=== PATIENT | female | born 1945 | race Caucasian/White ===

== ENCOUNTER 2018-03-10 09:01 | Outpatient (CLI) | payer MEDICARE | END 2018-03-10 09:02 | disposition home or self-care (01) | LOC: CTENTCT 09:01 | PROVIDERS: ATTEND Specialist | DX: J32.8 Other chronic sinusitis (principal) | CPT/HCPCS: 70486 ==

== ENCOUNTER 2018-10-16 07:33 | Day surgery (SDC) | payer MEDICARE ==
[2018-10-13 15:43] VITALS: BMI 34.4
[2018-10-16] MEDS ORDERED: Midazolam HCl 2 mg/2 ml Vial ONE (09:02)
[2018-10-16] MEDS ORDERED: Fentanyl 100 MCG/2 ML VIAL ONE (09:02)
[2018-10-16] MEDS ORDERED: Sodium Bicarbonate 2.5 MEQ/5 ML VIAL ONE (09:02)
[2018-10-16 10:14] VITALS: TEMP 97.6
[2018-10-16] MEDS ORDERED: Acetaminophen 500 MG TAB ONE (10:29)
--- NOTE | 2018-10-16 11:06 | ULT ---
ULTRASOUND HEPATIC BIOPSY: HISTORY: Autoimmune hepatitis. COMPARISON: None. TECHNIQUE/FINDINGS: The patient was brought to the ultrasound suite. All questions were answered. Informed consent was obtained. Timeout performed. The patient's upper abdomen was prepped and draped in normal sterile fashion. The skin and deep soft tissues were anesthetized with 5 mL of Lidocaine. After adequate anesthesia, a small dermatotomy was made. Using a 10 cm Biopince needle, a total of two 22 mm cores was obtained . The patient tolerated the procedure well without complication. IMPRESSION: Technically successful ultrasound-guided liver random biopsy. POS: [facility]
[2018-10-16 12:13] VITALS: BP 139/59
== END 2018-10-16 11:15 | disposition home or self-care (01) ==
LOC: ULT 07:33
PROVIDERS: ATTEND Internal Medicine Gastroenterology
PROC: 0FB03ZX Excision of Liver, Percutaneous Approach, Diagnostic (ICD-10-PCS; principal; 2018-10-16)
DX: K75.4 Autoimmune hepatitis (principal); K76.0 Fatty (change of) liver, not elsewhere classified; I10 Essential (primary) hypertension; K21.9 Gastro-esophageal reflux disease without esophagitis; Z79.899 Other long term (current) drug therapy
CPT/HCPCS: 36415; 47000; 76942; 85025; 85610; 85730; 86038; 86225; 86235; 88307; 88313; 88342; J2250; J3010

== ENCOUNTER 2020-03-13 13:49 | Outpatient (CLI) | payer MEDICARE | END 2020-03-13 13:50 | disposition home or self-care (01) | LOC: DTY/OP 13:49 | PROVIDERS: ATTEND Family Medicine | DX: I10 Essential (primary) hypertension (principal); R73.03 Prediabetes | CPT/HCPCS: 97802 ==

== ENCOUNTER 2020-08-06 14:05 | Observation (INO) | payer MEDICARE ==
[2020-08-06 14:53] VITALS: BMI 29.8
[2020-08-06] MEDS ORDERED: Communication Order-Pharmacy FS SCH (17:00)
[2020-08-07 02:27] LABS: SARS-CoV-2 MS2 Positive; SARS-CoV-2 N Gene Negative; SARS-CoV-2 S Gene Negative; SARS-CoV-2 by NAA Not Detected (NotDetected); SARS-CoV-2 orf1ab Negative
[2020-08-07 07:42] LABS: #Basophils 0.1 thou/uL (0.0-0.2); #Eosinphils 0.2 thou/uL (0.0-0.7); #Lymphocytes 1.4 thou/uL (1.20-3.40); #Monocytes 0.6 thou/uL (0.11-0.59); #Neutrophils 3.8 thou/uL (1.40-6.50); %Basophils 1.7 % (0.0-1.0); %Eosinophils 2.6 % (0.0-10.0); %Lymphocytes 22.8 % (21.0-51.0); %Monocytes 9.7 % (0.0-10.0); %Neutrophils 63.2 % (42.0-75.0); Hemoglobin 12.6 g/dL (12.0-16.0); Mean Corpuscular HGB CONC 32.4 g/dL (32.0-36.0); Mean Corpuscular Hemoglobin 30.3 pg (27.0-31.0); Mean Corpuscular Volume 93.5 fL (78.0-98.0); Mean Platelet Volume 8.1 fL (7.4-10.4); Platelet Count 184 thou/uL (130-400); RBC Distribution Width 12.1 % (11.5-14.5); Red Blood Cell (RBC) Count 4.16 mill/uL (4.20-5.40); White Blood Cell (WBC) Count 6.1 thou/uL (4.8-10.8)
[2020-08-07 07:59] LABS: Anion Gap 15 mmol/L (10-20); BUN (Urea Nitrogen) 16 mg/dL (9.8-20.1); Calc. Creatinine Clearance 89 mL/min (70-130); Carbon Dioxide 24 mmol/L (23-31); Chloride 104 mmol/L (98-107); Glucose 101 mg/dL (83-110); Potassium 4.1 mmol/L (3.5-5.1); Sodium 139 mmol/L (136-145)
[2020-08-07] MEDS ORDERED: Midazolam HCl 2 mg/2 ml Vial ONE ×3 (08:35→14:44)
[2020-08-07] MEDS ORDERED: Aspirin 81 mg Enteric Coated Tablet PO SCH (09:00)
[2020-08-07] MEDS ORDERED: Iopamidol 370 76% 50 ML VIAL FS ONE (09:03)
[2020-08-07] MEDS ORDERED: Iopamidol 370 76% 100 ML VIAL ONE (09:03)
[2020-08-07] MEDS ORDERED: Nitroglycerin 0.4 MG TAB (25 Tab Bottle) SL PRN (09:17)
[2020-08-07] MEDS ORDERED: Acetaminophen/Codeine 30-300mg Tablet PO PRN ×2 (09:17)
[2020-08-07] MEDS ORDERED: Sodium Chloride 0.9% 200 ML IV PRN (09:17)
--- NOTE | 2020-08-07 11:19 | CON ---
DATE OF CONSULTATION: 08/07/2020 HISTORY OF PRESENT ILLNESS: I am seeing Ms. Nielsen at our [facility] telemetry floor for electrophysiology consultation. Her problems are; 1. Frequent palpitations. a. Event monitor from July demonstrates frequent PAT runs and also episodes of wide-complex rhythm, cannot rule out VT versus artifact. 2. History of preserved LVEF on 2D echocardiogram. a. Nuclear stress test in July 2020 demonstrated a transient dilation. Left heart catheterization is planned. 3. History of hypertension. 4. History of elevated BMI. 5. History of autoimmune hepatitis, on Imuran. 6. Remote history of renal-cell cancer, status post resection, in remission. ALLERGIES: LISINOPRIL. MEDICATIONS: At home included levothyroxine, azathioprine (Imuran), and losartan. SUBJECTIVE: Ms. Nielsen has been complaining of increasing palpitation. This has been bothering her for a couple of years, but for over last 8 months, she has been feeling very frequently. The episodes can last up to 35 minutes. She never passes out. Denies angina-like discomfort associated with the spells. She has no PND, orthopnea. No neurological deficits. No fever, chills, or cough. She has no bleeding issues or stroke-like symptoms, and rest of 12-point review of system was unremarkable. PAST MEDICAL HISTORY: As above. She has been evaluated by Dr. Guillen with event monitor as above, the wide-complex rhythm as well as the abnormal stress test, prompting left heart catheterization today. SOCIAL HISTORY: The patient denies smoking, EtOH, or drug abuse. The patient is . PAST SURGICAL HISTORY: Significant for; 1. Appendectomy. 2. Cholecystectomy. 3. Renal-cell cancer resection. 4. Sinus procedure. 5. Liver biopsy. FAMILY HISTORY: Noncontributory. OBJECTIVE: VITAL SIGNS: Blood pressure is 128/58, heart rate 64, respirations 14, temperature 98 degrees Fahrenheit. GENERAL: This is an alert and oriented woman with no apparent distress. NECK: Supple. Jugular veins not distended. CHEST: Coarse without crackles. HEART: Sounds are regular to rate and rhythm. No murmur or gallop. ABDOMEN: Benign. Bowel sounds positive. EXTREMITIES: Lower extremities without edema, clubbing, or cyanosis. Pulses are adequate. NEUROLOGIC: The patient is nonfocal. MUSCULOSKELETAL: Without joint swelling or deformity. SKIN: Without rash. DATABASE: EKG reveals sinus rhythm, narrow QRS, nonspecific ST-T changes. Reviewed the remote monitoring strips from Dr. Guillen's office simply indicate predominantly sinus rhythm. The frequent short lasting PAT runs are seen. There is also an episode of wide-complex rhythm albeit nonsustained, which appears to be abnormally wide-complex, total duration of cannot be completely ruled out. LABORATORY DATA: White cell count 6.1, hemoglobin 12.6, platelet count is 184. Sodium 139, potassium 4.1, BUN 16, creatinine 0.75. COVID serology is negative. ASSESSMENT AND PLAN: Ms. Nielsen is a very pleasant 75-year-old woman with history of hypertension and remote history of partial nephrectomy for renal-cell cancer, in remission. For last 8 months, she has been experiencing increasing palpitations and recent event monitor does demonstrate frequent PAT runs and atrial ectopy. There is also abnormally looking wide-complex run, which could represent ventricular tachycardia versus artifact. She is undergoing an ischemic evaluation by Dr. Guillen. So far, echocardiogram reveals normal LVEF. Left heart catheterization results are pending. We discussed the significance of these findings. Clearly, the frequent PAT runs could be contributing to her symptoms. On occasion, atrial fibrillation could arise from these issues. On the other hand, the wide-complex rhythm is concerning for ventricular tachycardia as part of her symptoms. We could consider an EP study and assess the exact etiology, after heart catheterization rules ouit need for from revascularization. I discussed the procedure risks, benefits with the patient. She understands and willing to proceed. Thank you again for allowing me to participate in the care of this patient. We will follow with you. [facility] ID: [id number] [facility]
[2020-08-07] MEDS ORDERED: Fentanyl 100 MCG/2 ML VIAL ONE (14:21)
--- NOTE | 2020-08-07 17:40 | OP ---
DATE OF PROCEDURE: 08/07/2020 PROCEDURE PERFORMED: Electrophysiology study. REASON FOR PROCEDURE: Ms. Nielsen is a 75-year-old woman with prior history of palpitations. She had an event monitor, which demonstrated frequent PAT runs, also short atrial fibrillation, also nonsustained wide-complex rhythm. She is here for EP study to assess the exact source of her arrhythmias. DESCRIPTION OF PROCEDURE: The patient received conscious sedation with Versed and fentanyl. Total sedation time was about 45 minutes. The patient was monitored with oxygen saturation, vital signs were monitored throughout the procedure. After adequate level of sedation achieved, the right femoral venous area was prepped, draped, anesthetized using subcutaneous lidocaine. Under ultrasound guidance, the right femoral vein was cannulated. A 6 and 8-Estonian short sheath was introduced, through which a decapolar and octapolar catheters were advanced to the right atrium, right ventricle, His bundle, and CS position. Pacing, mapping, and recording were performed at each location. Following findings were noted. Baseline rhythm was sinus rhythm with cycle length 952 milliseconds, ND 221 milliseconds, QRS 43 milliseconds, QT 660 milliseconds, AH 129 milliseconds, HV 46 milliseconds. No persistent VA conduction was seen down to 800 milliseconds ventricular pacing. AV Wenckebach cycle length was seen at 460 milliseconds, and no evidence of aberration seen at that level. AV reji ERP was measured at 600/360 milliseconds without evidence of dual AV reji physiology. The burst atrial pacing induced an atrial fibrillation. Atrial fibrillation persisted for 12 minutes. Eventually organized into typical appearing atrial flutter. We entrianed the tachycardia at the CS os and post pacing interval matched the tachycardia cycle length, which could suggest right atrial flutter circuit. Shortly the atrial flutter converted back to atrial fibrillation and self-terminated. No cardioversion was necessary. Ventricular extrastimuli testing was performed at 400 millisecond cycle length with up to 3 ventricular extrastimuli at two separate right ventricular locations. The short up to 5 beats nonsustained wide-complex rhythm was induced with aggressive tightly coupled ventricular extrastimuli only. No sustained ventricular arrhythmia was noted. CONCLUSION: 1. Inducible sustained, but eventually self terminating atrial fibrillation seen, which occasionally organized into a typical appearing atrial flutter. 2. Only nonsustained ventricular arrhythmias seen. 3. Normal AV reji and His-Purkinje function. 4. No evidence of accessory pathway. 5. No additional atrial arrhythmias induced. PLAN: Could consider suppression with beta blockers versus Multaq or flecainide. Ablation if recurrence despite. Could consider oral anticoagulation. Job ID: [id number] [facility]
[2020-08-07] MEDS: Apixaban 5 MG TAB PO SCH (21:22)
[2020-08-08 04:33] LABS: Hemoglobin 11.9 g/dL (12.0-16.0); Platelet Count 159 thou/uL (130-400)
[2020-08-08] MEDS: Apixaban 5 MG TAB PO SCH (08:34)
[2020-08-08] MEDS ORDERED: Losartan 25 MG TAB PO SCH (09:00)
[2020-08-08 10:52] VITALS: BP 140/65; TEMP 98
--- NOTE | 2020-08-08 12:39 | DIS ---
DATE OF ADMISSION: 08/06/2020 DATE OF DISCHARGE: 08/08/2020 DISCHARGE DIAGNOSES: 1. Atrial fibrillation. 2. Nonsustained ventricular tachycardia. 3. Coronary artery disease. 4. Hypertension. 5. Autoimmune hepatitis. HISTORY: This patient is a very pleasant 75-year-old woman, who presented for evaluation of palpitations. The patient underwent a cardiac evaluation including a Holter monitor, which revealed a wide-complex tachycardia suggestive of nonsustained ventricular tachycardia. The patient also underwent a Cardiolite stress test, which revealed her to have TID. The patient was admitted for further evaluation. HOSPITAL COURSE: On 08/07/2020, the patient underwent a left heart catheterization. She was found to have normal left ventricular systolic function with an estimated ejection fraction 55% to 60%. The left anterior descending and left circumflex artery were free of significant disease. The right coronary artery had a 20% stenosis. 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 The patient underwent an EP consultation. She subsequently underwent an EP study. The patient was found to have multiple runs of atrial tachycardia and atrial fibrillation. The patient was felt to have only rare nonsustained ventricular tachycardia. It was recommended that the patient will be treated with a beta-saad. The patient was started on Toprol. The patient was discharged in stable condition. The patient will be placed on Eliquis for anticoagulation. DISCHARGE MEDICATIONS: 1. Eliquis 5 b.i.d. 2. Toprol-XL 50 daily. 3. Losartan 50 daily. 4. Synthroid 100 mcg daily. 5. Imuran 50 mg p.o. at bedtime. Job ID: [id number] [facility]
== END 2020-08-08 11:25 | disposition home or self-care (01) ==
LOC: INTOOBSV 14:05 → 2NO 14:05
PROVIDERS: ADMIT Internal Medicine Cardiovascular Disease; ATTEND Internal Medicine Cardiovascular Disease
PROC: 4A023FZ Measurement of Cardiac Rhythm, Percutaneous Approach (ICD-10-PCS; principal; 2020-08-07)
PROC: 4A0234Z Measurement of Cardiac Electrical Activity, Percutaneous Approach (ICD-10-PCS; 2020-08-07)
PROC: 4A023N7 Measurement of Cardiac Sampling and Pressure, Left Heart, Percutaneous Approach (ICD-10-PCS; 2020-08-07)
PROC: B2111ZZ Fluoroscopy of Multiple Coronary Arteries using Low Osmolar Contrast (ICD-10-PCS; 2020-08-07)
DX: I48.91 Unspecified atrial fibrillation (principal); I48.92 Unspecified atrial flutter; I25.10 Atherosclerotic heart disease of native coronary artery without angina pectoris; I25.41 Coronary artery aneurysm; R07.89 Other chest pain; I47.2 Ventricular tachycardia; K21.9 Gastro-esophageal reflux disease without esophagitis; M85.80 Other specified disorders of bone density and structure, unspecified site; I10 Essential (primary) hypertension; K75.4 Autoimmune hepatitis; E66.01 Morbid (severe) obesity due to excess calories; Z68.29 Body mass index [BMI] 29.0-29.9, adult; Z85.528 Personal history of other malignant neoplasm of kidney; Z79.899 Other long term (current) drug therapy; Z88.8 Allergy status to other drugs, medicaments and biological substances; Z90.5 Acquired absence of kidney; Z20.828 Contact with and (suspected) exposure to other viral communicable diseases
CPT/HCPCS: 76942; 80048; 82565; 85014; 85018; 85025; 85049; 93458; 93621; 94760; C1730; G0378 ×3; G0379; U0003; 36415; 87635; 99152; 99153; J1644; J2250; J3010; Q9967

== ENCOUNTER 2021-11-27 13:48 | Observation (INO) | payer MEDICARE ==
[~2021-11-27 13:48] MED LIST: Iopamidol-370 76% 500 ML 1 ML ONE
[2021-11-27] MEDS ORDERED: Morphine 4 MG/ML VIAL ONE (14:52)
[2021-11-27] MEDS ORDERED: Nitroglycerin 2% Ointment 1 INCH/1 GM Packet ONE (14:52)
[2021-11-27] MEDS ORDERED: Metoprolol Tartrate 5 MG/5 ML VIAL ONE (14:54)
[2021-11-27 15:01] LABS: ALT (SGPT) 12 U/L (8-55); AST (SGOT) 23 U/L (5-34); Alkaline Phosphatase 31 U/L (40-110); Anion Gap 13 mmol/L (10-20); BUN (Urea Nitrogen) 21 mg/dL (9.8-20.1); Bilirubin, Total 0.2 mg/dL (0.2-1.2); CK (CPK) 61 U/L (29-168); Calc. Creatinine Clearance 0 mL/min (70-130); Calcium 9.2 mg/dL (7.8-10.44); Carbon Dioxide 24 mmol/L (23-31); Chloride 104 mmol/L (98-107); Globulin 3.8 g/dL (2.4-3.5); Glucose 119 mg/dL (83-110); Lipase 44 U/L (8-78); Potassium 3.9 mmol/L (3.5-5.1); Protein, Total 7.8 g/dL (5.8-8.1); Sodium 137 mmol/L (136-145)
[2021-11-27 15:06] LABS: #Eosinphils 0.2 thou/uL (0.0-0.7); #Lymphocytes 1.5 thou/uL (1.20-3.40); #Monocytes 0.6 thou/uL (0.11-0.59); #Neutrophils 4.2 thou/uL (1.40-6.50); %Basophils 0.6 % (0.0-1.0); %Eosinophils 2.6 % (0.0-10.0); %Lymphocytes 22.5 % (21.0-51.0); %Monocytes 9.6 % (0.0-10.0); %Neutrophils 64.6 % (42.0-75.0); Hemoglobin 12.1 g/dL (12.0-16.0); Mean Corpuscular HGB CONC 31.9 g/dL (32.0-36.0); Mean Corpuscular Hemoglobin 31.2 pg (27.0-31.0); Mean Corpuscular Volume 97.7 fL (78.0-98.0); Mean Platelet Volume 8.4 fL (7.4-10.4); Platelet Count 139 thou/uL (130-400); RBC Distribution Width 12.8 % (11.5-14.5); Red Blood Cell (RBC) Count 3.87 mill/uL (4.20-5.40); White Blood Cell (WBC) Count 6.5 thou/uL (4.8-10.8)
[2021-11-27 17:53] LABS: Troponin I Less than 0.010 ng/mL (< 0.028)
[2021-11-27] MEDS ORDERED: Ondansetron ODT 4 MG TAB PO PRN (18:04)
[2021-11-27] MEDS ORDERED: Ondansetron PF 4 MG/2 ML Vial IVP PRN (18:04)
[2021-11-27] MEDS ORDERED: Senokot S 8.6-50 MG TAB PO PRN (18:04)
[2021-11-27] MEDS ORDERED: Acetaminophen 325 MG TAB PO PRN (18:04)
[2021-11-27] MEDS ORDERED: Morphine 4 MG/ML VIAL SLOW IVP PRN (18:17)
[2021-11-27] MEDS ORDERED: hydrALAZINE 20 MG/ML VIAL SLOW IVP PRN (18:51)
[2021-11-27 19:54] VITALS: BMI 29.3
[2021-11-27] MEDS: valACYclovir 500 MG TAB PO SCH (20:22)
[2021-11-27] MEDS: Gabapentin 300 MG CAP PO SCH (20:23)
[2021-11-27] MEDS: Apixaban 5 MG TAB PO SCH (20:25)
[2021-11-27 20:52] LABS: Troponin I Less than 0.010 ng/mL (< 0.028)
[2021-11-27] MEDS ORDERED: azaTHIOprine 50 MG TAB PO SCH (21:00)
[2021-11-27] MEDS ORDERED: Calcium Carbonate 500 MG ChewTAB PO SCH (22:30)
[2021-11-28 04:25] VITALS: BP 134/63
[2021-11-28 05:29] LABS: #Eosinphils 0.2 thou/uL (0.0-0.7); #Lymphocytes 1.2 thou/uL (1.20-3.40); #Monocytes 0.7 thou/uL (0.11-0.59); #Neutrophils 3.4 thou/uL (1.40-6.50); %Basophils 0.4 % (0.0-1.0); %Eosinophils 4.1 % (0.0-10.0); %Lymphocytes 21.5 % (21.0-51.0); %Monocytes 11.8 % (0.0-10.0); %Neutrophils 62.3 % (42.0-75.0); Hemoglobin 11.9 g/dL (12.0-16.0); Mean Corpuscular HGB CONC 33.2 g/dL (32.0-36.0); Mean Corpuscular Hemoglobin 32.7 pg (27.0-31.0); Mean Corpuscular Volume 98.5 fL (78.0-98.0); Mean Platelet Volume 8.6 fL (7.4-10.4); Platelet Count 128 thou/uL (130-400); RBC Distribution Width 12.9 % (11.5-14.5); Red Blood Cell (RBC) Count 3.63 mill/uL (4.20-5.40); White Blood Cell (WBC) Count 5.5 thou/uL (4.8-10.8)
[2021-11-28 05:53] LABS: Anion Gap 13 mmol/L (10-20); BUN (Urea Nitrogen) 15 mg/dL (9.8-20.1); Calc. Creatinine Clearance 96 mL/min (70-130); Calcium 8.8 mg/dL (7.8-10.44); Carbon Dioxide 23 mmol/L (23-31); Chloride 106 mmol/L (98-107); Glucose 106 mg/dL (83-110); Potassium 3.9 mmol/L (3.5-5.1); Sodium 138 mmol/L (136-145)
[2021-11-28] MEDS ORDERED: Levothyroxine Sodium 100 MCG TAB PO SCH (06:00)
[2021-11-28 08:01] VITALS: TEMP 98
[2021-11-28] MEDS: valACYclovir 500 MG TAB PO SCH (09:23)
[2021-11-28] MEDS: Gabapentin 300 MG CAP PO SCH (09:24)
[2021-11-28] MEDS: Apixaban 5 MG TAB PO SCH (09:24)
== END 2021-11-28 11:26 | disposition home or self-care (01) ==
LOC: ERS 13:48 → 2SW 16:45
PROVIDERS: ADMIT Family Medicine; ATTEND Internal Medicine
DX: B02.8 Zoster with other complications (principal); R07.89 Other chest pain; K86.2 Cyst of pancreas; I12.9 Hypertensive chronic kidney disease with stage 1 through stage 4 chronic kidney disease, or unspecified chronic kidney disease; N18.2 Chronic kidney disease, stage 2 (mild); D63.1 Anemia in chronic kidney disease; I48.20 Chronic atrial fibrillation, unspecified; K75.4 Autoimmune hepatitis; E03.9 Hypothyroidism, unspecified; I25.10 Atherosclerotic heart disease of native coronary artery without angina pectoris; N28.1 Cyst of kidney, acquired; F40.240 Claustrophobia; Z86.16 Personal history of COVID-19; Z79.01 Long term (current) use of anticoagulants; Z79.890 Hormone replacement therapy; Z79.899 Other long term (current) drug therapy; Z88.8 Allergy status to other drugs, medicaments and biological substances; Z90.5 Acquired absence of kidney
CPT/HCPCS: 71045; 71275; 74174; 80048; 80053; 82550; 83690; 83880; 84484 ×2; 85025 ×2; 93005; 94760; 96374; 96376; 97139; 99285; G0378 ×3; 36415; J2270; J7500; Q9967

== ENCOUNTER 2024-05-11 18:17 | Emergency (ER) | payer MEDICARE ==
[2024-05-11 20:39] LABS: #Basophils 0.05 10x3/uL (0.0-0.2); %Basophils 0.5 % (0.0-1.0); %Eosinophils 3.4 % (0.0-10.0); %Neutrophils 66.6 % (42.0-75.0); Hematocrit 33.4 % (36.0-47.0); Hemoglobin 10.9 g/dL (12.0-16.0); Mean Corpuscular HGB CONC 32.6 g/dL (32.0-36.0); Mean Corpuscular Hemoglobin 29.4 pg (27.0-31.0); Mean Platelet Volume 10.8 fL (7.4-10.4); Platelet Count 192 10x3/uL (130-400); RBC Distribution Width 14.2 % (11.5-14.5); Red Blood Cell (RBC) Count 3.71 mill/uL (4.20-5.40)
[2024-05-11 20:54] LABS: ALT (SGPT) 23 U/L (8-55); AST (SGOT) 38 U/L (5-34); Albumin 3.3 g/dL (3.4-4.8); Alkaline Phosphatase 29 U/L (40-110); Anion Gap 13 mmol/L (10-20); BUN (Urea Nitrogen) 19 mg/dL (9.8-20.1); Bilirubin, Total 0.7 mg/dL (0.2-1.2); CK (CPK) 164 U/L (29-168); Calc. Creatinine Clearance 0 mL/min (70-130); Calcium 9.4 mg/dL (7.8-10.44); Carbon Dioxide 25 mmol/L (23-31); Chloride 103 mmol/L (98-107); Estimated GFR 63; Globulin 4.7 g/dL (2.4-3.5); Glucose 104 mg/dL (83-110); Potassium 3.8 mmol/L (3.5-5.1); Sodium 137 mmol/L (136-145)
[2024-05-11 20:59] LABS: Troponin I 0.015 ng/mL (< 0.028)
[2024-05-11 21:27] LABS: Bacteria/HPF None Seen HPF (None Seen); Bilirubin Negative (Negative); Blood, Urine Trace (Negative); CAUTI Indications for Culture Alt mental st,lethar; Clarity Clear (Clear); Glucose, Urine (Dipstick) Normal (Negative); Ketone, Urine Negative (Negative); Leukocyte 500 Leu/uL (Negative); Nitrite Negative (Negative); Protein, Urine (Dipstick) Negative (Neg-Trace); RBC/HPF None Seen HPF (0-3); Specific Gravity, Urine 1.006 (1.002-1.036); Urobilinogen Normal mg/dL (Less than 2)
[2024-05-11 21:28] LABS: Urine Culture Reflex No No
== END 2024-05-11 23:35 | disposition home or self-care (01) ==
LOC: ERS 18:17
DX: J18.9 Pneumonia, unspecified organism (principal); I10 Essential (primary) hypertension; R41.0 Disorientation, unspecified; Z79.899 Other long term (current) drug therapy
CPT/HCPCS: 70450; 71045; 80053; 81001; 82140; 82550; 84484; 85025; 93005

== ENCOUNTER 2024-06-28 05:30 | Emergency (ER) | payer MEDICARE | END 2024-06-28 07:45 | disposition home or self-care (01) | LOC: ERS 05:30 | DX: S09.90XA Unspecified injury of head, initial encounter (principal); I10 Essential (primary) hypertension; I48.91 Unspecified atrial fibrillation; Z87.891 Personal history of nicotine dependence; W01.10XA Fall on same level from slipping, tripping and stumbling with subsequent striking against unspecified object, initial encounter | CPT/HCPCS: 70450 ==

== ENCOUNTER 2024-07-05 11:56 | Emergency (ER) | payer MEDICARE ==
[2024-07-05 12:35] LABS: #Basophils 0.07 10x3/uL (0.0-0.2); %Basophils 1.2 % (0.0-1.0); %Neutrophils 58.5 % (42.0-75.0); Hematocrit 37.1 % (36.0-47.0); Mean Corpuscular HGB CONC 32.3 g/dL (32.0-36.0); Mean Corpuscular Hemoglobin 29.2 pg (27.0-31.0); Mean Corpuscular Volume 90.3 fL (78.0-98.0); Mean Platelet Volume 11.3 fL (7.4-10.4); Platelet Count 163 10x3/uL (130-400); RBC Distribution Width 14.8 % (11.5-14.5); Red Blood Cell (RBC) Count 4.11 mill/uL (4.20-5.40)
[2024-07-05 12:44] LABS: ALT (SGPT) 14 U/L (8-55); AST (SGOT) 26 U/L (5-34); Albumin 3.5 g/dL (3.4-4.8); Alkaline Phosphatase 34 U/L (40-110); Anion Gap 13 mmol/L (10-20); BUN (Urea Nitrogen) 14 mg/dL (9.8-20.1); Bilirubin, Total 0.3 mg/dL (0.2-1.2); Calc. Creatinine Clearance 0 mL/min (70-130); Calcium 9.3 mg/dL (7.8-10.44); Carbon Dioxide 24 mmol/L (23-31); Chloride 105 mmol/L (98-107); Estimated GFR 80; Globulin 3.8 g/dL (2.4-3.5); Glucose 136 mg/dL (83-110); Potassium 3.8 mmol/L (3.5-5.1); Protein, Total 7.3 g/dL (5.8-8.1); Sodium 138 mmol/L (136-145)
[2024-07-05 12:48] LABS: INR-International Normal Ratio 1.1; Prothrombin Time 14.1 sec (12.0-14.7)
[2024-07-05 12:49] LABS: PTT 34.9 sec (22.9-36.1); Troponin I 0.013 ng/mL (< 0.028)
[2024-07-05 13:41] LABS: Bacteria/HPF None Seen HPF (None Seen); Bilirubin Negative (Negative); Blood, Urine Negative (Negative); CAUTI Indications for Culture Immunosuppressed; Clarity Clear (Clear); Glucose, Urine (Dipstick) Normal (Negative); Ketone, Urine Negative (Negative); Leukocyte Negative Leu/uL (Negative); Nitrite Negative (Negative); Protein, Urine (Dipstick) Negative (Neg-Trace); RBC/HPF 0-3 HPF (0-3); Squamous Epithelial 0-3 HPF (0-3); Urobilinogen Normal mg/dL (Less than 2); WBC/HPF 0-3 HPF (0-3)
[2024-07-05 13:45] LABS: Urine Culture Reflex No No; Urine Culture Reflex Yes Yes
== END 2024-07-05 14:45 | disposition home or self-care (01) ==
LOC: ERS 11:56
DX: F03.90 Unspecified dementia, unspecified severity, without behavioral disturbance, psychotic disturbance, mood disturbance, and anxiety (principal); I10 Essential (primary) hypertension; R41.0 Disorientation, unspecified; Z87.891 Personal history of nicotine dependence; Z55.6 Problems related to health literacy
CPT/HCPCS: 51701; 70450; 71045; 80053; 81001; 84484; 85025; 85610; 85730; 87086; 93005

== ENCOUNTER 2024-08-13 13:52 | Observation (INO) | payer MEDICARE ==
[~2024-08-13 13:52] MED LIST changes: -Iopamidol-370 76% 500 ML 1 ML ONE; +Iopamidol-370 76% 500 ML MDV (1 ML CHARGE) ONE
[2024-08-13 14:41] LABS: #Basophils 0.06 10x3/uL (0.0-0.2); %Basophils 0.5 % (0.0-1.0); %Eosinophils 2.3 % (0.0-10.0); %Lymphocytes 10.8 % (21.0-51.0); %Monocytes 9.3 % (0.0-10.0); %Neutrophils 76.7 % (42.0-75.0); Hematocrit 39.6 % (36.0-47.0); Hemoglobin 12.4 g/dL (12.0-16.0); Mean Corpuscular HGB CONC 31.3 g/dL (32.0-36.0); Mean Corpuscular Volume 92.5 fL (78.0-98.0); Mean Platelet Volume 12.3 fL (7.4-10.4); Platelet Count 148 10x3/uL (130-400); RBC Distribution Width 15.1 % (11.5-14.5); Red Blood Cell (RBC) Count 4.28 mill/uL (4.20-5.40)
[2024-08-13 15:06] LABS: CRP,High Sensitivity (Inhouse) 4.02 mg/dL (< or = 0.5)
[2024-08-13 15:07] LABS: ALT (SGPT) 23 U/L (8-55); AST (SGOT) 29 U/L (5-34); Albumin 2.9 g/dL (3.4-4.8); Alkaline Phosphatase 31 U/L (40-110); Anion Gap 14 mmol/L (10-20); BUN (Urea Nitrogen) 16 mg/dL (9.8-20.1); Bilirubin, Total 0.6 mg/dL (0.2-1.2); Calc. Creatinine Clearance 0 mL/min (70-130); Calcium 8.9 mg/dL (7.8-10.44); Carbon Dioxide 27 mmol/L (23-31); Chloride 108 mmol/L (98-107); Estimated GFR 80; Globulin 3.8 g/dL (2.4-3.5); Glucose 133 mg/dL (83-110); Protein, Total 6.7 g/dL (5.8-8.1); Sodium 146 mmol/L (136-145)
[2024-08-13] MEDS ORDERED: Ampicillin/Sulbactam 3 GM VIAL ONE (15:48)
[2024-08-13] MEDS ORDERED: Sodium Chloride 0.9% 100 ML ONE (15:48)
[2024-08-13] MEDS ORDERED: Dexamethasone 10 MG/ML VIAL ONE (16:14)
[2024-08-13] MEDS ORDERED: Potassium Chloride 20 MEQ TAB ONE (16:14)
[2024-08-13 17:29] LABS: Lactic Acid 2.57 mmol/L (0.5-2.2)
[2024-08-13] MEDS ORDERED: Bisacodyl 5 MG TAB PO PRN (17:38)
[2024-08-13] MEDS ORDERED: Ondansetron ODT 4 MG TAB PO PRN (17:38)
[2024-08-13] MEDS ORDERED: Acetaminophen 325 MG TAB PO PRN (17:38)
[2024-08-13] MEDS ORDERED: Acetaminophen 650 MG Suppository PR PRN (17:38)
[2024-08-13] MEDS ORDERED: Senokot S 8.6-50 MG TAB PO PRN (17:38)
[2024-08-13] MEDS ORDERED: Albuterol 200 PUFF (6.7GM INHALER) INH PRN (17:39)
[2024-08-13 20:15] VITALS: BMI 24.1
[2024-08-13] MEDS: Ampicillin/Sulbactam 3 GM in Sodium Chloride 0.9% 100 ML IVPB SCH (22:07)
[2024-08-13] MEDS: Famotidine 20 MG TAB PO SCH (22:11)
[2024-08-13] MEDS: azaTHIOprine 50 MG TAB PO SCH (22:11)
[2024-08-13] MEDS: Vancomycin (BATCH) 1.5 GM in Premix 1 BAG IVPB SCH (22:12)
[2024-08-13] MEDS: Sertraline 25 MG TAB PO SCH (22:12)
[2024-08-14] MEDS: Melatonin 3 MG TAB PO PRN (01:23)
[2024-08-14] MEDS: Levothyroxine Sodium 100 MCG TAB PO SCH (05:10)
[2024-08-14 06:34] LABS: #Basophils Less than 0.03 10x3/uL (0.0-0.2); #Eosinophils Less than 0.03 10x3/uL (0.0-0.7); %Basophils 0.2 % (0.0-1.0); %Monocytes 4.2 % (0.0-10.0); Hematocrit 34.9 % (36.0-47.0); Hemoglobin 10.8 g/dL (12.0-16.0); Mean Corpuscular HGB CONC 30.9 g/dL (32.0-36.0); Mean Corpuscular Hemoglobin 28.6 pg (27.0-31.0); Mean Corpuscular Volume 92.6 fL (78.0-98.0); Mean Platelet Volume 12.6 fL (7.4-10.4); Platelet Count 137 10x3/uL (130-400); Red Blood Cell (RBC) Count 3.77 mill/uL (4.20-5.40)
[2024-08-14 06:48] LABS: Anion Gap 13 mmol/L (10-20); BUN (Urea Nitrogen) 14 mg/dL (9.8-20.1); Calc. Creatinine Clearance 69 mL/min (70-130); Calcium 8.5 mg/dL (7.8-10.44); Carbon Dioxide 23 mmol/L (23-31); Chloride 110 mmol/L (98-107); Estimated GFR 88; Glucose 125 mg/dL (83-110); Potassium 3.5 mmol/L (3.5-5.1); Sodium 142 mmol/L (136-145)
[2024-08-14 06:49] LABS: Vancomycin, Random 15.5 ug/mL (See Comment)
[2024-08-14] MEDS: Aripiprazole 2 MG TAB PO SCH (09:53)
[2024-08-14] MEDS: Vancomycin HCl 750 MG in Sodium Chloride 0.9% 250 ML 250 ML IVPB SCH (13:06)
[2024-08-14 14:03] VITALS: BP 129/78; TEMP 97.3
== END 2024-08-14 14:45 | disposition home or self-care (01) ==
LOC: ERS 13:52 → T4-A 17:12
PROVIDERS: ADMIT Internal Medicine; ATTEND Internal Medicine
DX: K11.21 Acute sialoadenitis (principal); K75.4 Autoimmune hepatitis; I10 Essential (primary) hypertension; I48.20 Chronic atrial fibrillation, unspecified; E03.9 Hypothyroidism, unspecified; F03.90 Unspecified dementia, unspecified severity, without behavioral disturbance, psychotic disturbance, mood disturbance, and anxiety; Z86.16 Personal history of COVID-19; Z98.890 Other specified postprocedural states; Z90.49 Acquired absence of other specified parts of digestive tract; Z88.8 Allergy status to other drugs, medicaments and biological substances; Z79.890 Hormone replacement therapy; Z79.51 Long term (current) use of inhaled steroids; Z79.01 Long term (current) use of anticoagulants; Z79.2 Long term (current) use of antibiotics; Z79.899 Other long term (current) drug therapy
CPT/HCPCS: 70450; 70491; 80048; 80053; 80202; 83605; 84145; 85025 ×2; 86141; 87040; 96374; 96375 ×2; 96376 ×2; 99284; G0378 ×3; J0295 ×3; J1100; J3370 ×2; J7050; 36415; J7500; Q9967

== ENCOUNTER 2024-08-24 09:54 | Outpatient (CLI) | payer MEDICARE | END 2024-08-24 09:55 | disposition home or self-care (01) | LOC: CT 09:54 | PROVIDERS: ATTEND Neurological Surgery | DX: S06.6X0A Traumatic subarachnoid hemorrhage without loss of consciousness, initial encounter (principal) | CPT/HCPCS: 70450 ==

== ENCOUNTER 2024-09-06 10:45 | Outpatient (CLI) | payer MEDICARE | END 2024-09-06 10:46 | disposition home or self-care (01) | LOC: LABBT 10:45 | PROVIDERS: ATTEND Orthopaedic Surgery | DX: Z01.810 Encounter for preprocedural cardiovascular examination (principal); I48.0 Paroxysmal atrial fibrillation; Z91.89 Other specified personal risk factors, not elsewhere classified; W19.XXXA Unspecified fall, initial encounter | CPT/HCPCS: 93005; 93010 ==

== ENCOUNTER 2024-09-06 11:00 | Inpatient (IN) | payer MEDICARE ==
[2024-09-06 13:01] LABS: #Basophils 0.05 10x3/uL (0.0-0.2); %Basophils 0.8 % (0.0-1.0)
[2024-09-06 13:23] LABS: INR-International Normal Ratio 1.1; PTT 30.6 sec (22.9-36.1)
[2024-09-06 13:29] LABS: ALT (SGPT) 12 U/L (8-55); AST (SGOT) 24 U/L (5-34); Albumin 3.2 g/dL (3.4-4.8); Alkaline Phosphatase 27 U/L (40-110); Anion Gap 13 mmol/L (10-20); BUN (Urea Nitrogen) 10 mg/dL (9.8-20.1); Bilirubin, Total 0.8 mg/dL (0.2-1.2); Calc. Creatinine Clearance 0 mL/min (70-130); Calcium 9.3 mg/dL (7.8-10.44); Carbon Dioxide 29 mmol/L (23-31); Chloride 105 mmol/L (98-107); Estimated GFR 92; Globulin 3.9 g/dL (2.4-3.5); Glucose 82 mg/dL (83-110); Potassium 3.3 mmol/L (3.5-5.1); Protein, Total 7.1 g/dL (5.8-8.1); Sodium 144 mmol/L (136-145)
[2024-09-06 13:54] LABS: %Eosinophils 2.4 % (0.0-10.0); %Lymphocytes 24.1 % (21.0-51.0); %Monocytes 10.8 % (0.0-10.0); %Neutrophils 61.6 % (42.0-75.0); Hematocrit 38.5 % (36.0-47.0); Hemoglobin 12.2 g/dL (12.0-16.0); Mean Corpuscular HGB CONC 31.7 g/dL (32.0-36.0); Mean Corpuscular Hemoglobin 29.5 pg (27.0-31.0); Mean Corpuscular Volume 93.2 fL (78.0-98.0); Mean Platelet Volume 11.5 fL (7.4-10.4); Platelet Count 152 10x3/uL (130-400); Red Blood Cell (RBC) Count 4.13 mill/uL (4.20-5.40)
[2024-09-12] MEDS ORDERED: Iopamidol 370 76% 100 ML VIAL ONE (08:58)
[2024-09-12] MEDS ORDERED: PROPOFOL 200 MG/20 ML VIAL ONE (13:23)
[2024-09-12] MEDS ORDERED: Rocuronium Bromide 10 MG/ML (10ML VIAL) ONE (13:23)
[2024-09-12] MEDS ORDERED: Ondansetron PF 4 MG/2 ML Vial ONE (13:23)
[2024-09-12] MEDS ORDERED: Dexamethasone 20 MG/5 ML VIAL ONE (13:23)
[2024-09-12] MEDS ORDERED: Lidocaine 1% PF 5 ML VIAL ONE (13:23)
[2024-09-12] MEDS ORDERED: Protamine Sulfate 50 MG/5 ML VIAL ONE (14:35)
[2024-09-12] MEDS ORDERED: SUGAMMADEX SODIUM 200 MG/2 ML VIAL ONE (14:35)
[2024-09-12 17:34] VITALS: BMI 23.2
[2024-09-12] MEDS ORDERED: Albuterol 200 PUFF INH INH PRN (17:39)
[2024-09-12] MEDS ORDERED: Acetaminophen 325 MG TAB PO PRN (17:45)
[2024-09-12] MEDS: Melatonin 3 MG TAB PO SCH (21:33)
[2024-09-12] MEDS: azaTHIOprine 50 MG TAB PO SCH (21:33)
[2024-09-12] MEDS: Divalproex Sodium 250 MG DR.TAB PO SCH (21:33)
[2024-09-12] MEDS: Metoprolol Succinate XL 50 MG ER.TAB PO SCH (21:33)
[2024-09-12] MEDS: Sertraline 25 MG TAB PO SCH (21:33)
[2024-09-13 05:05] LABS: #Basophils Less than 0.03 10x3/uL (0.0-0.2); #Eosinophils Less than 0.03 10x3/uL (0.0-0.7); %Basophils 0.3 % (0.0-1.0); %Lymphocytes 13.1 % (21.0-51.0); %Monocytes 9.1 % (0.0-10.0); Hematocrit 37.8 % (36.0-47.0); Mean Corpuscular HGB CONC 31.7 g/dL (32.0-36.0); Mean Corpuscular Hemoglobin 29.3 pg (27.0-31.0); Mean Corpuscular Volume 92.4 fL (78.0-98.0); Mean Platelet Volume 11.8 fL (7.4-10.4); Platelet Count 113 10x3/uL (130-400); RBC Distribution Width 15.8 % (11.5-14.5); Red Blood Cell (RBC) Count 4.09 mill/uL (4.20-5.40)
[2024-09-13 05:21] LABS: Anion Gap 12 mmol/L (10-20); BUN (Urea Nitrogen) 8 mg/dL (9.8-20.1); Calc. Creatinine Clearance 93 mL/min (70-130); Calcium 8.3 mg/dL (7.8-10.44); Carbon Dioxide 24 mmol/L (23-31); Chloride 111 mmol/L (98-107); Estimated GFR 94; Glucose 101 mg/dL (83-110); Potassium 3.5 mmol/L (3.5-5.1); Sodium 143 mmol/L (136-145)
[2024-09-13] MEDS: Levothyroxine Sodium 100 MCG TAB PO SCH (05:52)
[2024-09-13] MEDS ORDERED: Electrolyte Replacement Protocol 1 EACH FS ONE (09:22)
[2024-09-13] MEDS ORDERED: Electrolyte Replacement Protocol FS PRN (09:30)
[2024-09-13] MEDS: Clopidogrel Bisulfate 75 MG TAB PO SCH (09:59)
[2024-09-13] MEDS: Metoprolol Succinate XL 25 MG ER.TAB PO SCH (09:59)
[2024-09-13] MEDS: FLUoxetine HCl 20 MG CAP PO SCH (09:59)
[2024-09-13] MEDS: Aspirin 81 mg Enteric Coated Tablet PO SCH (09:59)
[2024-09-13] MEDS: Aripiprazole 2 MG TAB PO SCH (09:59)
[2024-09-13] MEDS: Potassium Chloride 20 MEQ TAB PO SCH (09:59)
[2024-09-13 10:47] VITALS: BMI 23.2
[2024-09-13 11:33] LABS: Magnesium 1.8 mg/dL (1.6-2.6)
[2024-09-13] MEDS: Magnesium 2 GM/50 ML(in water) 2 GM in Premix 1 BAG IVPB SCH (13:25)
[2024-09-13 15:56] VITALS: TEMP 98.2
[2024-09-13 17:24] VITALS: BP 124/66
== END 2024-09-13 17:30 | DRG 274 ==
LOC: SURG A 09-12 09:14 → 2NO 09-12 16:47
PROVIDERS: ADMIT Internal Medicine Cardiovascular Disease; ATTEND Internal Medicine
PROC: 02L73DK Occlusion of Left Atrial Appendage with Intraluminal Device, Percutaneous Approach (ICD-10-PCS; principal; 2024-09-12)
PROC: 4A023N7 Measurement of Cardiac Sampling and Pressure, Left Heart, Percutaneous Approach (ICD-10-PCS; 2024-09-12)
PROC: B2111ZZ Fluoroscopy of Multiple Coronary Arteries using Low Osmolar Contrast (ICD-10-PCS; 2024-09-12)
DX: I23.6 Thrombosis of atrium, auricular appendage, and ventricle as current complications following acute myocardial infarction (principal); F02.84 Dementia in other diseases classified elsewhere, unspecified severity, with anxiety; I48.0 Paroxysmal atrial fibrillation; G30.9 Alzheimer's disease, unspecified; I10 Essential (primary) hypertension; E03.9 Hypothyroidism, unspecified; K75.4 Autoimmune hepatitis; Z90.49 Acquired absence of other specified parts of digestive tract; Z88.8 Allergy status to other drugs, medicaments and biological substances; Z79.890 Hormone replacement therapy; Z79.899 Other long term (current) drug therapy
CPT/HCPCS: 33340; 36415; 80048; 80053; 83735; 85025; 85347; 85610; 85730; 86850; 86900; 86901; 93306; 93312; C1759; C1760; C1817; C1894; J1100; J2405; J2704; J2720; J3475; Q9967